=== PATIENT | male | born 1965 ===

== ENCOUNTER 2022-10-30 07:10 | Outpatient (CLI) | payer OTHER | END 2022-10-30 07:15 | disposition home or self-care (01) | LOC: NUCLEAR 07:10 | PROVIDERS: ATTEND Internal Medicine | DX: R00.2 Palpitations (principal); I10 Essential (primary) hypertension | CPT/HCPCS: 78452; 93017; A9500 ==

== ENCOUNTER 2025-08-27 07:07 | Outpatient (CLI) | payer OTHER | END 2025-08-27 07:08 | disposition home or self-care (01) | LOC: NUCLEAR 07:07 | DX: R07.9 Chest pain, unspecified (principal) ==